=== PATIENT | female | born 1995 | race Caucasian/White ===

== ENCOUNTER 2019-09-08 05:50 | Day surgery (SDC) | payer OTHER ==
[~2019-09-08] VITALS: Ht 167.6 cm; Wt 53.0 kg
[~2019-09-08 05:50] MED LIST: MULT-658 PO; [UNRECOGNIZED DRUG - REMARK] PO; fish oil PO; glucosamin PO; probiotic PO; tumeric PO
[2019-09-08] MEDS ORDERED: LACTATED RINGERS 1,000 ML IV SCH (06:41)
[2019-09-08 07:00] LABS: HCG UR SG 1.025 (1.003-1.030)
[2019-09-08] MEDS ORDERED: LIDOCAINE-MPF 1%, 2ML INFIL ONE (07:00)
[2019-09-08] MEDS ORDERED: BUPIVACAINE/PF 0.25% ONE (07:03)
[2019-09-08] MEDS ORDERED: EPINEPHRINE 1 MG/ML, 1ML ONE (07:03)
[2019-09-08] MEDS ORDERED: GABAPENTIN 300 MG CAPSULE ONE (07:10)
[2019-09-08] MEDS ORDERED: ACETAMINOPHEN 500 MG TABLET ONE (07:11)
[2019-09-08] MEDS ORDERED: FENTANYL PF 100 MCG/2ML ONE ×3 (07:22→08:15)
[2019-09-08 07:25] VITALS: BP 117/80
[2019-09-08] MEDS ORDERED: PROPOFOL 10 MG/ML, 20ML ONE (07:25)
[2019-09-08] MEDS ORDERED: SUCCINYLCHOLINE 20 MG/ML, 10ML ONE (07:25)
[2019-09-08] MEDS ORDERED: DEXAMETHASONE 4 MG/ML, 1ML ONE (07:25)
[2019-09-08] MEDS ORDERED: ROCURONIUM 10 MG/ML,10ML ONE (07:25)
[2019-09-08] MEDS ORDERED: ONDANSETRON 2MG/ML, 2ML ONE (07:25)
[2019-09-08] MEDS ORDERED: PROMETHAZINE 25 MG/ML, 1ML IV PRN (07:30)
[2019-09-08] MEDS ORDERED: MEPERIDINE/PF 25MG/ML,1ML IVPush PRN ×2 (07:30→09:30)
[2019-09-08] MEDS ORDERED: GABAPENTIN 300 MG CAPSULE PO ONE (07:30)
[2019-09-08] MEDS ORDERED: HALOPERIDOL 5 MG/ML IV PRN (07:30)
[2019-09-08] MEDS ORDERED: LABETALOL 5MG/ML, 20ML IV PRN (07:30)
[2019-09-08] MEDS ORDERED: HYDROmorphone 2 MG/ML, 1ML IVPush PRN ×2 (07:30→08:30)
[2019-09-08] MEDS ORDERED: OXYcodone 5 MG/5 ML ORAL.SOL UDC PO PRN ×2 (07:30→08:30)
[2019-09-08] MEDS ORDERED: hydrALAzine 20 MG/ML, 1ML IV PRN (07:30)
[2019-09-08] MEDS ORDERED: ACETAMINOPHEN 500 MG TABLET PO ONE (07:30)
[2019-09-08] MEDS ORDERED: BUPIVACAINE/PF-EPI 0.25% 1:200K INFIL ONE (07:44)
[2019-09-08] MEDS ORDERED: OXYcodone 5 MG/5 ML ORAL.SOL UDC ONE (08:15)
[2019-09-08] MEDS: FENTANYL PF 100 MCG/2ML IV PRN ×2 (08:20→08:49)
[2019-09-08] MEDS ORDERED: HYDROmorphone 1 MG/ML, 1ML VIAL ONE (08:55)
[2019-09-08] MEDS ORDERED: MEPERIDINE/PF 25MG/ML,1ML ONE (09:08)
== END 2019-09-08 11:15 | disposition home or self-care (01) ==
LOC: OUT 05:50
PROVIDERS: ATTEND Otolaryngology
DX: J03.91 Acute recurrent tonsillitis, unspecified (principal); J35.01 Chronic tonsillitis
CPT/HCPCS: 42821; 81025; 88304; J0171; J0330; J1100; J1170; J2175; J2405; J2704; J3010; J3490; J7120